=== PATIENT | female | born 1940 | race Caucasian/White ===

== ENCOUNTER 2023-12-02 16:46 | Inpatient (IN) | payer MEDICARE, MEDICAID ==
[~2023-12-02] VITALS: Ht 165.1 cm; Wt 49.9 kg
[~2023-12-02 16:46] MED LIST: IBUP-2741 PO
[2023-12-02 17:42] LABS: CLARITY URINE TURBID (CLEAR); COLOR URINE YELLOW (YELLOW); GLUCOSE URINE NEGATIVE (NEGATIVE); KETONES URINE NEGATIVE (NEGATIVE); LEUKOCYTE ESTERASE URINE NEGATIVE (NEGATIVE); NITRITE URINE NEGATIVE (NEGATIVE); OCCULT BLOOD URINE NEGATIVE (NEGATIVE); PH URINE 7.5 (4.5-8.0); PROTEIN URINE NEGATIVE (NEGATIVE); SPECIFIC GRAVITY URINE 1.009 (1.005-1.030); UROBILINOGEN URINE 0.2 E.U./dL (0.2-1.0)
[2023-12-02 17:57] LABS: HEMATOCRIT. 39.6 % (36.0-48.0); HEMOGLOBIN. 13.2 g/dL (12.0-16.0); MEAN CORPUSCULAR HEMOGLOBIN 25.5 pg (28.0-32.0); MEAN CORPUSCULAR HGB CONC 33.3 g/dL (31.0-37.0); MEAN CORPUSCULAR VOLUME 76.6 fL (81.0-99.0); MEAN PLATELET VOLUME 10.2 fl (7.4-10.4); PLATELET 297 x1000/uL (130-400); RED BLOOD CELL COUNT 5.17 mill/uL (4.2-5.4); RED CELL DISTRIBUTION WIDTH 17.8 % (11.6-14.6); WHITE BLOOD COUNT 12.5 x1000/uL (4.5-11.0)
[2023-12-02 17:59] LABS: DIFFERENTIAL COMMENT 1
[2023-12-02 17:59] LABS: AMORPHOUS SEDIMENT URINE 1+ /lpf; BACTERIA URINE 2+; RBC URINE 0-2 /hpf (0-2); SQUAMOUS EPITHELIAL CELL URINE FEW /lpf (RARE/1+); WBC URINE 0-2 /hpf (0-2)
[2023-12-02 18:08] LABS: ALANINE AMINOTRANSFERASE 11 IU/L (10-49); ALBUMIN 4.6 g/dL (3.2-4.8); ASPARTATE AMINOTRANSFERASE 28 IU/L (<34); BILIRUBIN TOTAL 0.9 mg/dL (0.1-1.0); CALCIUM 11.9 mg/dL (8.7-10.4); CARBON DIOXIDE 34 mEq/L (21-32); CHLORIDE 86 mEq/L (98-107); GLUCOSE 131 mg/dL (70-105); SODIUM 131 mEq/L (136-145); UREA NITROGEN BLOOD 17 mg/dL (9-23)
[2023-12-02 18:23] LABS: POTASSIUM 2.7 mEq/L (3.5-5.1); TROPONIN I HIGH SENSITIVITY 338 ng/L (3.0-34)
[2023-12-02 18:47] LABS: MICROCYTOSIS 1+; PLATELET ESTIMATE NORMAL
[2023-12-02] MEDS: ASPIRIN 325MG EC TABLET PO NR (19:02)
[2023-12-02] MEDS: POTASSIUM CHLORIDE 20MEQ TABLET SR PO NR (19:02)
[2023-12-02 21:02] LABS: TROPONIN I HIGH SENSITIVITY 952 ng/L (3.0-34)
[2023-12-02] MEDS ORDERED: ONDANSETRON HCL 4MG/2ML INJ IV PRN (21:30)
[2023-12-02] MEDS ORDERED: MAGNESIUM/ALUMINUM HYDROXIDE/SIMETHICONE 30ML UDC PO PRN (21:30)
[2023-12-02] MEDS ORDERED: GUAIFENESIN 200MG/10ML SUGAR FREE UDC PO PRN (21:30)
[2023-12-02] MEDS ORDERED: CLONIDINE 0.1MG TABLET PO PRN (21:30)
[2023-12-02] MEDS ORDERED: ACETAMINOPHEN 325MG TABLET PO PRN (21:30)
[2023-12-02] MEDS ORDERED: DOCUSATE SODIUM 100MG CAPSULE PO PRN (21:30)
[2023-12-02] MEDS ORDERED: IPRATROPIUM/ALBUTEROL 0.5-3(2.5)MG/3ML NEB HHN PRN (21:30)
[2023-12-02] MEDS: MVI, ADULT NO.1 10 ML, FOLIC ACID 1 MG, THIAMINE HCL 100 MG in SODIUM CHLORIDE 0.9% 1,0... IV NR (22:30)
[2023-12-02] MEDS ORDERED: CEFTRIAXONE 1GM/50ML 50 ML IV NR (22:30)
[2023-12-02] MEDS ORDERED: KCL 20MEQ/100ML PREMIX 100 ML IV SCH (23:00)
[2023-12-03] VITALS (7 sets, daily range): BP systolic 104–130; BP diastolic 51–79; PULSE 95–107; RESP 18–20; TEMP 97.1–98.1
[2023-12-03 01:07] LABS: LACTIC ACID 2.1 mmol/L (0.4-2.0)
[2023-12-03 01:08] LABS: CREATINE KINASE MB FRACTION 7.4 ng/mL (0.5-3.6)
[2023-12-03] MEDS ORDERED: HEPARIN BOLUS PRN aPTT 30-44 IV (02:15)
[2023-12-03] MEDS ORDERED: HEPARIN BOLUS PRN aPTT <30 IV (02:15)
[2023-12-03] MEDS: HEPARIN 25,000 UNITS PREMIX 250 ML IV SCH (02:55)
[2023-12-03] MEDS: HEPARIN 60 UNITS/KG BOLUS IV NR (02:56)
[2023-12-03 07:09] LABS: BASOPHILS % 1.3 % (0.0-2.0); DIFFERENTIAL COMMENT 0; EOSINOPHILS % 0.3 % (0.0-5.0); HEMATOCRIT. 37.4 % (36.0-48.0); HEMOGLOBIN. 12.6 g/dL (12.0-16.0); LYMPHOCYTES % 20.8 % (20.0-50.0); MEAN CORPUSCULAR HEMOGLOBIN 25.4 pg (28.0-32.0); MEAN CORPUSCULAR HGB CONC 33.7 g/dL (31.0-37.0); MEAN CORPUSCULAR VOLUME 75.3 fL (81.0-99.0); MEAN PLATELET VOLUME 10.4 fl (7.4-10.4); MONOCYTES % 12.5 % (2.0-8.0); NEUTROPHILS % 65.1 % (40.0-76.0); PLATELET 242 x1000/uL (130-400); RED BLOOD CELL COUNT 4.98 mill/uL (4.2-5.4); RED CELL DISTRIBUTION WIDTH 17.5 % (11.6-14.6); WHITE BLOOD COUNT 10.8 x1000/uL (4.5-11.0)
[2023-12-03 07:40] LABS: CREATINE KINASE MB FRACTION 6.3 ng/mL (0.5-3.6)
[2023-12-03 07:46] LABS: ALANINE AMINOTRANSFERASE 11 IU/L (10-49); ALBUMIN 4.2 g/dL (3.2-4.8); ASPARTATE AMINOTRANSFERASE 32 IU/L (<34); BILIRUBIN TOTAL 0.8 mg/dL (0.1-1.0); CALCIUM 11.2 mg/dL (8.7-10.4); CARBON DIOXIDE 30 mEq/L (21-32); CHLORIDE 92 mEq/L (98-107); CHOLESTEROL 230 mg/dL (<200); GLUCOSE 109 mg/dL (70-105); HDL CHOLESTEROL 72 mg/dL (>65); LDL CHOLESTEROL 156 mg/dL (5-100); POTASSIUM 2.9 mEq/L (3.5-5.1); SODIUM 132 mEq/L (136-145); T4 FREE 1.53 ng/dL (0.89-1.76); THYROID STIMULATING HORMONE 1.17 uIU/mL (0.55-4.78); TRIGLYCERIDE 105 mg/dL (0-150); UREA NITROGEN BLOOD 16 mg/dL (9-23)
[2023-12-03] MEDS: ENOXAPARIN 60MG/0.6ML SYR SUBCUT SCH (12:02)
[2023-12-03] MEDS: POTASSIUM CHLORIDE 20MEQ TABLET SR PO SCH (12:02)
[2023-12-03] MEDS: OMEPRAZOLE 20MG CAPSULE EXTENDED RELEASE PO SCH (12:03)
[2023-12-03 13:27] LABS: CREATINE KINASE MB FRACTION 5.5 ng/mL (0.5-3.6)
[2023-12-04] VITALS (8 sets, daily range): BP systolic 81–118; BP diastolic 49–58; PULSE 83–89; RESP 17–20; TEMP 97.6–98.1; O2SAT 95
[2023-12-04 05:55] LABS: BASOPHILS % 2.8 % (0.0-2.0); DIFFERENTIAL COMMENT 0; EOSINOPHILS % 4.1 % (0.0-5.0); LYMPHOCYTES % 29.6 % (20.0-50.0); MEAN CORPUSCULAR HEMOGLOBIN 25.6 pg (28.0-32.0); MEAN CORPUSCULAR HGB CONC 33.2 g/dL (31.0-37.0); MEAN PLATELET VOLUME 9.8 fl (7.4-10.4); NEUTROPHILS % 51.5 % (40.0-76.0); PLATELET 191 x1000/uL (130-400); RED BLOOD CELL COUNT 4.29 mill/uL (4.2-5.4); RED CELL DISTRIBUTION WIDTH 17.3 % (11.6-14.6); WHITE BLOOD COUNT 5.9 x1000/uL (4.5-11.0)
[2023-12-04 05:59] LABS: PROTHROMBIN TIME 10.8 sec (9.6-11.0)
[2023-12-04 06:16] LABS: ALANINE AMINOTRANSFERASE 8 IU/L (10-49); ALBUMIN 3.7 g/dL (3.2-4.8); ASPARTATE AMINOTRANSFERASE 23 IU/L (<34); BILIRUBIN TOTAL 0.6 mg/dL (0.1-1.0); CALCIUM 10.1 mg/dL (8.7-10.4); CARBON DIOXIDE 30 mEq/L (21-32); CHLORIDE 98 mEq/L (98-107); GLUCOSE 81 mg/dL (70-105); POTASSIUM 3.2 mEq/L (3.5-5.1); SODIUM 134 mEq/L (136-145); UREA NITROGEN BLOOD 16 mg/dL (9-23)
[2023-12-04] MEDS: POTASSIUM CHLORIDE 20MEQ TABLET SR PO NR (10:30)
[2023-12-04] MEDS: IPRATROPIUM/ALBUTEROL 0.5-3(2.5)MG/3ML NEB HHN SCH (21:29)
[2023-12-05] VITALS (7 sets, daily range): BP systolic 101–109; BP diastolic 45–55; PULSE 72–89; RESP 18–19; TEMP 97–97.8; O2SAT 95–97
[2023-12-05 16:26] LABS: CALCIUM 9.7 mg/dL (8.7-10.4); CREATININE 0.9 mg/dL (0.6-1.0); POTASSIUM 4.2 mEq/L (3.5-5.1)
[2023-12-05] MEDS ORDERED: ATORVASTATIN CALCIUM 20MG TABLET PO SCH (21:00)
== END 2023-12-05 15:55 | DRG 70 ==
LOC: ER 16:46 → EDBEDREQ 21:15 → EDBEDREQTM 21:15 → 7WST 23:52
PROVIDERS: ADMIT Hospitalist; ATTEND Hospitalist
DX: G93.41 Metabolic encephalopathy (principal); I21.4 Non-ST elevation (NSTEMI) myocardial infarction; E87.6 Hypokalemia; E78.5 Hyperlipidemia, unspecified; R53.1 Weakness; I08.0 Rheumatic disorders of both mitral and aortic valves; I10 Essential (primary) hypertension; J44.89 Other specified chronic obstructive pulmonary disease; Z86.73 Personal history of transient ischemic attack (TIA), and cerebral infarction without residual deficits; Z87.11 Personal history of peptic ulcer disease
CPT/HCPCS: 36415; 71045; 80048; 80053; 80061; 81003; 82550; 82553; 83605; 83735; 83880; 84439; 84443; 84484; 85025; 93005; 93306; 93880; 94640; 97162; 97166; 99285; C1893; J1644; J1650; J3411; J3480; J3490; J7030